=== PATIENT | female | born 1940 | race Caucasian/White ===

== ENCOUNTER 2018-03-04 09:12 | Emergency (ER) | payer MEDICARE, OTHER ==
[2018-03-04 09:29] VITALS: BP 147/82
--- NOTE | 2018-03-04 10:32 | RAD ---
INDICATION: Right knee pain. TECHNIQUE: 4 views of the right knee were obtained. FINDINGS: The bones appear osteopenic. There is lateral subluxation of the patella. No joint effusion or fracture is seen. There is mild to moderate osteoarthritic change in the medial and lateral compartments and moderate to severe osteoarthritic change in the patellofemoral compartment. IMPRESSION: 1. LATERAL SUBLUXATION OF THE PATELLA, LIKELY CHRONIC. 2. MODERATE TO SEVERE OSTEOARTHRITIC CHANGE IN THE PATELLOFEMORAL COMPARTMENT.
--- NOTE | 2018-03-04 10:55 | UC ---
Knee Pain HPI - HPI Summary HPI Summary: 2 WEEKS OF RIGHT KNEE PAIN GETTING WORSE. NO DISCRETE INJURY BUT STATES THAT SHE HAS BEEN KICKING HER FRONT DOOR TO OPEN IT FOR THE PAST FEW MONTHS IT HAS BEEN STICKING. HAS ORTHO APPT IN [place] 03/09/18 BUT WANTED TO GET SEEN SOONER. PAIN IS WORSE WITH FLEXION. - History of Current Complaint Chief Complaint: UCLowerExtremity Stated Complaint: KNEE PAIN Time Seen by Provider: 03/04/18 09:52 Hx Obtained From: Patient Onset/Duration: Gradual Onset, Lasting Weeks, Still Present Severity Initially: Moderate Severity Currently: Moderate Pain Intensity: 3 Pain Scale Used: 0-10 Numeric Character: Aching Aggravating Factor(s): Movement Alleviating Factor(s): Rest, Position Associated Signs And Symptoms: Positive: Swelling Able to Bear Weight: Yes - Allergies/Home Medications Allergies/Adverse Reactions: Allergies Allergy/AdvReac Type Severity Reaction Status Date / Time No Known Allergies Allergy Verified 03/04/18 09:20 Home Medications: Home Medications Losartan Potassium 100 mg PO DAILY 03/04/18 [History Confirmed 03/04/18] PMH/Surg Hx/FS Hx/Imm Hx - Additional Past Medical History Additional PMH: CHRONIC BACK PAIN Cardiovascular History: Hypertension Cancer History: Breast Cancer - Surgical History Surgical History: Yes Surgery Procedure, Year, and Place: Right mastectomy. hysterectomy. tonsillectomy - Family History Known Family History: Positive: Hypertension - Social History Alcohol Use: Occasionally Substance Use Type: None Smoking Status (MU): Never Smoked Tobacco Have You Smoked in the Last Year: No Review of Systems Constitutional: Negative Skin: Negative Respiratory: Negative Cardiovascular: Negative Gastrointestinal: Negative Musculoskeletal: Arthralgia, Decreased ROM, Edema All Other Systems Reviewed And Are Negative: Yes Physical Exam Triage Information Reviewed: Yes Appearance: Well-Appearing, No Pain Distress, Well-Nourished Vital Signs: Initial Vital Signs Temp 98 F 03/04/18 09:22 Pulse 78 03/04/18 09:22 Resp 16 03/04/18 09:22 BP 147/82 03/04/18 09:22 Pulse Ox 100 03/04/18 09:22 Vital Signs Reviewed: Yes Eyes: Positive: Conjunctiva Clear ENT: Positive: Hearing grossly normal Neck: Positive: Supple Respiratory: Positive: No respiratory distress, No accessory muscle use Cardiovascular: Positive: Pulses Normal Abdomen Description: Positive: Soft Musculoskeletal: Positive: ROM Limited @ - RIGHT KNEE FLEXION, Edema @ - RIGHT KNEE LATERALLY, Other: - NO JOINT LINE TENDERNESS OR TENDERNESS OVER ANY BONY PROMINENCES. MCL AND LCL INTACT TO STRESS TESTING. NEG DRAWERS SIGNS. NEG MCMURRAYS. NO TENDERNESS OVER PATELLAR LIGAMENT OR QUADRICEPS TENDON. DECREASED ROM (FLEXION) Neurological: Positive: Alert Psychological: Positive: Age Appropriate Behavior Skin: Negative: rashes Diagnostics - Radiology RIGHT KNEE XRAY Xray Interpretation: Positive (See Comments) - 1. LATERAL SUBLUXATION OF THE PATELLA, LIKELY CHRONIC. 2. MODERATE TO SEVERE OSTEOARTHRITIC CHANGE IN THE PATELLOFEMORAL COMPARTMENT. Radiology Interpretation Completed By: Radiologist Knee Pain Course/Dx - Differential Dx/Diagnosis Provider Diagnoses: ACUTE RIGHT KNEE PAIN Discharge - Sign-Out/Discharge Documenting (check all that apply): Patient Departure All imaging exams completed and their final reports reviewed: Yes - Discharge Plan Condition: Stable Disposition: HOME Prescriptions: Meloxicam [Mobic] 7.5 mg PO BID PRN #30 tab PRN Reason: Pain Patient Education Materials: Osteoarthritis (ED), Knee Pain (ED) Referrals: Hudson Box MD [Primary Care Provider] - If Needed Additional Instructions: KNEE X-RAY TODAY SHOWS LIKELY CHRONIC LATERAL SUBLUXATION OF YOUR KNEE WELL OSTEOARTHRITIC CHANGES. KEEP YOUR FOLLOW-UP APPOINTMENT WITH ORTHOPEDICS NEXT WEDNESDAY. THE KNEE IMMOBILIZER WILL HELP WITH STABILITY AND COMFORT. MELOXICAM NEEDED. REST, ICE, ELEVATE. - Billing Disposition and Condition Condition: STABLE Disposition: Home
== END 2018-03-04 11:00 | disposition home or self-care (01) ==
LOC: UCEAST 09:12
DX: M25.561 Pain in right knee (principal); I10 Essential (primary) hypertension
CPT/HCPCS: 99212; G0463